=== PATIENT | male | born 1930 | race Caucasian/White ===

== ENCOUNTER 2016-06-13 17:44 | Inpatient (IN) ==
[2016-06-13] MEDS ORDERED: XYLOCAINE 2% JELLY UROJECT TOP ONE (18:32)
[2016-06-13] MEDS ORDERED: NS 1,000 ML IV ONE (18:32)
[2016-06-13] MEDS ORDERED: ZOFRAN IV ONE (18:33)
[2016-06-13 18:52] LABS: MANUAL DIFF NEEDED? NO
[2016-06-13 18:57] LABS: BASO% 0.1 % (0.0-0.8); HEMATOCRIT 38.5 % (42.0-52.0); HEMOGLOBIN 13.7 g/dL (14.0-18.0); IMM GRAN# 0.04 X1000 (0.0-0.04); IMM GRAN% 0.3 % (0.0-0.5); LYMPH# 1.49 X1000 (1.2-3.4); MCH 29.8 PG (27-31); MCHC 35.6 g/dL (33-37); MCV 83.7 FL (81-99); MONO# 1.54 X1000 (0.11-0.59); MONO% 10.4 % (1.7-9.3); NEUT% 79.2 % (42.2-75.2); PLT 235 X1000 (130-400)
[2016-06-13 19:25] LABS: CALCIUM 9.6 mg/dL (8.8-10.2); POTASSIUM 4.1 mmol/L (3.5-5.1); TOTAL BILIRUBIN 0.53 mg/dL (0.20-1.00)
[2016-06-13] MEDS ORDERED: HUMULIN R IV ONE (19:35)
[2016-06-13 20:00] LABS: ALLEN TEST YES; BE -0.1 mmoll (-3.0-3.0); BLOOD TYPE ARTERIAL; DRAW SITE R BRACHIAL; O2(CT) 17.7 mL/dL (15.0-23.0); PCO2(98.6) 36 mmHg (35-45); PO2(98.6) 63 mmHg (60-100); SAMPLE BLOOD; SAO2 96.3 % (95.0-100.0); THB 13.7 g/dL (11.5-17.4); pH(98.6) 7.43 (7.35-7.45)
[2016-06-13 20:01] LABS: MODALITY ROOM AIR
[2016-06-13 20:26] LABS: URINE CULTURE NEEDED? NO; URINE MICRO REVIEW NEEDED? NO; URINE SOURCE CATH
[2016-06-13 20:32] LABS: BILIRUBIN URINE NEGATIVE (NEGATIVE); BLOOD URINE MODERATE (NEGATIVE); COLOR YELLOW; GLUCOSE URINE >1000 mg/dL (NEGATIVE); LEUKOCYTES URINE NEGATIVE (NEGATIVE); NITRITE URINE NEGATIVE (NEGATIVE); PROTEIN URINE 50 mg/dL (NEGATIVE); TURBIDITY URINE CLEAR (CLEAR); UROBILINOGEN URINE NORMAL (NORMAL)
[2016-06-13 20:34] LABS: UR EPITHELIAL CELLS <10 /HPF (<10); URINE BACTERIA NEGATIVE /HPF; URINE RBC 20-40 /HPF (<10); URINE WBC <10 /HPF (<10)
[2016-06-13] MEDS ORDERED: LEVAQUIN 500 MG/D5W 500 MG/100 ML IVPB IV SCH (21:45)
--- NOTE | 2016-06-13 21:56 | HISTORY AND PHYSICAL ---
PRIMARY CARE PHYSICIAN: Dr. Eduardo Ag. CHIEF COMPLAINT: Nausea, vomiting. HISTORY OF PRESENTING ILLNESS: 86-year-old male with a history of diabetes mellitus 2, hypertension and hypothyroidism had presented to emergency department with complaint of nausea, vomiting that has been ongoing for the past 3 days. The patient was apparently getting weak and was also having trouble urinating. Patient recently underwent surgery for bladder tumor about 3 days ago and subsequently symptoms had started after that. He was seen in the ER and he was given some antiemetics and he was somewhat drowsy. Most of the history was obtained from family members. However the patient's family had denied patient having any fevers, chills, chest pain, shortness of breath or any recent weight changes. PAST MEDICAL HISTORY: Includes diabetes mellitus type 2, hypertension, hypothyroidism, hyperlipidemia. PAST SURGICAL HISTORY: Back surgery, appendectomy. ALLERGIES: Penicillin, iodine, sulfa. CURRENT MEDICATIONS: List in the MAR. SOCIAL HISTORY: He chews tobacco. No history of alcohol or illicit drug use. FAMILY HISTORY: No history of coronary disease. REVIEW OF SYSTEMS: Twelve point review of systems elicited but is limited due to patient being lethargic. PHYSICAL EXAMINATION: GENERAL: Patient is resting comfortably. VITAL SIGNS: Pulse 116, respirations 20, blood pressure 158/86, saturating 97% . HEENT: Atraumatic, normocephalic. NECK: No masses. CHEST: Clear to auscultation. CARDIOVASCULAR: Regular rate and rhythm. ABDOMEN: Soft. Positive bowel sounds. EXTREMITIES: No edema. NEURO: Alert and arousable. : No bladder distention. SKIN: Warm. LABORATORIES AND STUDIES: WBC 14.87 hemoglobin 13.7, hematocrit 38.5, platelets 235,000. Sodium 132, potassium 4.1, chloride 93, CO2 is 19, BUN is 44, creatinine is 2.2 , glucose is 495. UA is negative for bacteria, negative for leukocytes. ASSESSMENT: 86-year-old male with a history of diabetes mellitus type 2, hypertension, hypothyroidism, recently underwent bladder tumor removal and subsequently went home and developed nausea, vomiting that has been going on for the past 3 days. He also developed urinary retention. He was evaluated in the ER, Summers was placed. He was given antiemetic. He seemed to have some mild improvement. However due to his presenting symptoms he will need hospitalization for further management. Assessment 1. Postoperative nausea, vomiting. 2. Urinary retention. 3. Acute on chronic kidney disease stage 3. 4. Diabetes mellitus type 2 with hyperglycemia. 5Leukocytosis PLAN: 1. Will admit patient to medical floor with telemetry. 2. We will continue patient with antiemetics, IV fluids. 3. We will leave Summers in place. 4. We will consult urologist. 5. Monitor renal function. 6. We will put patient on insulin scale regimen and monitor blood glucose closely. 7.Will start empiric antibiotic 8. We will put patient on DVT prophylaxis with SCDs. 9. We will continue to follow and reassess. cc: Ever Doyle MD MTDD
[2016-06-13] MEDS ORDERED: ZOFRAN IV PRN (22:29)
[2016-06-13] MEDS ORDERED: NS 1,000 ML IV SCH (22:29)
[2016-06-14 05:35] LABS: MANUAL DIFF NEEDED? NO
[2016-06-14 05:48] LABS: BASO% 0.1 % (0.0-0.8); HEMOGLOBIN 13.1 g/dL (14.0-18.0); IMM GRAN# 0.02 X1000 (0.0-0.04); IMM GRAN% 0.2 % (0.0-0.5); LYMPH# 1.77 X1000 (1.2-3.4); LYMPH% 14.9 % (20.5-51.1); MCH 29.4 PG (27-31); MCHC 34.5 g/dL (33-37); MCV 85.4 FL (81-99); MONO# 1.58 X1000 (0.11-0.59); MONO% 13.3 % (1.7-9.3); MPV 11.3 FL (7.4-10.4); NEUT% 71.5 % (42.2-75.2); PLT 218 X1000 (130-400); RBC 4.45 XMIL (4.7-6.1)
[2016-06-14 05:59] LABS: CALCIUM 9.1 mg/dL (8.8-10.2); POTASSIUM 4.2 mmol/L (3.5-5.1)
[2016-06-14] MEDS: SYNTHROID PO SCH (06:05)
[2016-06-14] MEDS: HUMULIN R SUBQ SCH ×4 (06:58→21:18)
[2016-06-14] MEDS: COREG PO SCH ×2 (10:54→21:37)
[2016-06-14] MEDS: NS 1,000 ML IV SCH (11:02)
[2016-06-14] MEDS ORDERED: ZOCOR PO SCH (21:00)
[2016-06-14] MEDS ORDERED: DULCOLAX PR SCH (21:00)
--- NOTE | 2016-06-14 21:13 | PROGRESS NOTE ---
DATE: 06/14/2016 SUBJECTIVE: The patient states that he feels weak. He denies any nausea at this time. He has not had any episodes of vomiting. OBJECTIVE: Vital Signs: Temperature 98.2 degrees, blood pressure 177/82, heart rate 78, respirations 18, O2 saturations 95% on room air. General: This is a chronically ill-appearing, elderly male, lying in bed, in no acute distress. Head: Normocephalic, atraumatic. Heart: S1, S2 normal. Regular rate and rhythm. Lungs: Clear to auscultation bilaterally. Abdomen: Positive bowel sounds. Soft, nontender, nondistended. Extremities: No edema. No cyanosis. No calf tenderness. Neurologic: The patient is awake and alert. LABS: White blood cell count 11, hemoglobin 13, hematocrit 38, platelets 218, 000. Sodium 140, potassium 4.2, chloride 101, CO2 22, BUN 36, creatinine 1.8, glucose 304. ASSESSMENT AND PLAN: 1. Nausea with vomiting. We will order an abdominal x-ray to be sure that the patient is not constipated. We will continue on antiemetics for now. If the patient is constipated we will go ahead and scheduled laxatives. 2. Acute kidney injury on chronic kidney disease. The patient's baseline creatinine is unknown, however, improving with IV fluid hydration. We will continue on IV fluids. 3. Status post transurethral resection with a large bladder tumor with instillation of mitomycin C. Management as per the urologist. 4. Hypertension. We will start the patient on Coreg. 5. Uncontrolled diabetes mellitus type 2. The patient is on metformin and Adderall as outpatient. We will hold these medications due to the patient's renal dysfunction and start the patient on Levemir plus sliding scale insulin coverage. 6. Hypothyroidism. Continue on Synthroid. 7. The plan of care was discussed with the patient and his family at the bedside. cc: Lien Colbert MD MTDOsmel
[2016-06-14] MEDS: FLOMAX PO SCH (21:37)
[2016-06-14] MEDS: COLACE PO SCH (21:37)
[2016-06-14] MEDS: MIRALAX PO SCH (21:37)
[2016-06-14] MEDS: LEVEMIR SUBQ SCH (21:38)
--- NOTE | 2016-06-14 23:55 | CONSULTATION ---
DATE OF CONSULTATION: 06/14/2016 CONSULTING PHYSICIAN: Dr. Colbert. REASON FOR CONSULTATION: Urinary retention, recent urologic surgery. HISTORY OF PRESENT ILLNESS: This 86-year-old male, who was seen by me in clinic secondary microscopic hematuria. He was found to have a large bladder tumor, and underwent transurethral resection of that tumor with bilateral retrograde pyelograms and postoperative installation of mitomycin-C, on 06/10/2016. He was discharged home without the catheter. The family reports that since discharge he started having progressive difficulties with urinating, voiding in small amounts, as well as, developing nausea. He has contacted the urologist information security systems instructor over the weekend, and was given prescription for Phenergan, but could not hold it down, which prompted the ER trip. His nausea and vomiting were intractable, and his family also complained about patient getting weaker. Hence, he was admitted to the hospital. He is currently resting with Summers catheter in draining clear urine. Per family his nausea has now resolved. He denied significant gross hematuria or dysuria at home. There was no report of fevers or chills. PAST MEDICAL HISTORY: 1. Hyperlipidemia. 2. Hypothyroidism. 3. Diabetes mellitus. 4. Allergic rhinitis. 5. BPH. PAST SURGICAL HISTORY: Back surgery, appendectomy, transurethral resection of the bladder tumor. ALLERGIES: Penicillin, iodine, sulfa. HOME MEDICATIONS: Glimepiride, levothyroxine, metformin, simvastatin. SOCIAL HISTORY: He denies tobacco or alcohol or drug use. FAMILY HISTORY: Negative for malignancies. REVIEW OF SYSTEMS: Reviewed 12 systems with the patient and family, and negative with exception to the HPI. PHYSICAL EXAMINATION: T 99.1, P 82, BP 175/86.General: No acute distress. HEENT: Normocephalic, atraumatic. Cardiovascular: Regular rhythm. Pulmonary: Bilateral breath sounds. Abdomen: Nontender, nondistended. : Normal phallus. Normal meatus. Testes descended bilaterally. Summers catheter in place draining clear urine. Rectal: Deferred at this point. Dermatologic: No obvious skin rashes. Lymphatic: No groin lymphadenopathy. Neurologic: Alert and oriented x3. Psychiatric: Appropriate mood and affect. PERTINENT LABORATORY DATA: His white cell count is 12,000, hematocrit is 38, creatinine is 1.8. It was 2.2 upon presentation yesterday. Urinalysis was positive for blood, but negative for bacteria, leukocytes or nitrite. PERTINENT IMAGES: None. ASSESSMENT/PLAN: This is an 86-year-old male with recent diagnosis of bladder cancer, who underwent transurethral resection. He was readmitted with nausea, vomiting and weakness with likely resultant abnormalities in his electrolytes, as well as, elevated creatinine. His nausea has now resolved. Per his family, he is feeling better. We discussed that he likely went into retention, secondary to the underlying BPH, and the stress of surgery and the procedure. I am puzzled with why he developed such nausea, as his surgery was transurethral, and we typically do not affect GI system. We have discussed having the patient on Flomax, and wearing catheter for couple more days with subsequent voiding trial. PLAN: 1. Flomax 0.4 mg b.i.d. 2. Keep Summers catheter at gravity drainage. 3. I will follow, but no further urologic care is needed at this point. Thank you for consultation. cc: Bryon Nye MD
[2016-06-15] MEDS: NS 1,000 ML IV SCH ×2 (02:54→03:01)
[2016-06-15 03:40] VITALS: BP 170/71
[2016-06-15 05:45] LABS: HEMATOCRIT 35.3 % (42.0-52.0); HEMOGLOBIN 11.7 g/dL (14.0-18.0); MCH 28.9 PG (27-31); MCHC 33.1 g/dL (33-37); MCV 87.2 FL (81-99); MPV 11.1 FL (7.4-10.4); RBC 4.05 XMIL (4.7-6.1)
[2016-06-15] MEDS: SYNTHROID PO SCH (06:23)
[2016-06-15] MEDS: HUMULIN R SUBQ SCH ×2 (06:23→11:14)
[2016-06-15] MEDS: COREG PO SCH ×2 (08:05→11:14)
[2016-06-15] MEDS: MIRALAX PO SCH (08:05)
[2016-06-15] MEDS: LEVEMIR SUBQ SCH (08:05)
[2016-06-15] MEDS: FLOMAX PO SCH (08:05)
[2016-06-15] MEDS: COLACE PO SCH (08:05)
--- NOTE | 2016-06-15 10:00 | Diag Imaging Result Document ---
PROCEDURE NAME: CHEST-PORTABLE - 06/14/2016 PORTABLE CHEST X-RAY, 06/14/2016: COMPARISON: None. FINDINGS: The lungs are normally expanded and clear. Heart size and mediastinal contours are normal. No pneumothorax or pleural effusion. IMPRESSION: Negative exam.
[2016-06-15] MEDS ORDERED: FLEET MINERAL OIL ENEMA PR ONE (10:06)
--- NOTE | 2016-06-15 10:13 | Diag Imaging Result Document ---
PROCEDURE NAME: ABDOMEN FLAT/UPRIGHT - 06/14/2016 ABDOMEN, 2 VIEWS: COMPARISON: None. FINDINGS: There is mild constipation particularly at the ascending and sigmoid colon. No evidence of bowel obstruction or free air. IMPRESSION: Constipation.
--- NOTE | 2016-06-15 10:54 | PROGRESS NOTE ---
DATE: 06/15/2016 SUBJECTIVE: Mr. Marin reports having a good night. He denies nausea, vomiting. He is currently eating eggs, which he is tolerating well. OBJECTIVE: Vital Signs: T 98.7 degrees, P 77, BP 170/71. : Urine output was recorded in the amount of 1800 mL. Summers catheter draining clear urine. General: No acute distress. Abdomen: Nontender, nondistended. PERTINENT LABORATORY DATA: White cell count of 8000, creatinine is down to 1.3. ASSESSMENT: An 86-year-old male, status post transurethral resection of bladder tumor last week. He was admitted with nausea, vomiting, hyponatremia, acute kidney injury and exacerbation of his diabetes. He appears to be doing well now. I have discussed with the patient and his family that it would be prudent for him to go home on Flomax 0.4 mg twice a day and Summers catheter and us perform voiding trial in 2 days in clinic. PLAN: 1. No further care needed at this point. 2. When he is clear for discharge by Dr. Colbert, he will go home with Summers catheter and Flomax 0.4 mg twice a day. 3. I will be happy to see him in clinic on 06/17/2016 for formal voiding trial. cc: Bryon Nye MD
[2016-06-15] MEDS ORDERED: AMARYL PO SCH (21:00)
--- NOTE | 2016-06-23 22:32 | PROVIDER DOCUMENTATION ---
This chart was entered by Spencer Jackson Scribe, acting as scribe for Dylan Suarez MD. HPI-Rash/Wound/ReCheck - General Chief Complaint: Post Op Complaint Stated Complaint: VOMITING,WEAK,NOT EATING VERY WELL Time Seen by Provider: 06/13/16 18:23 Source: patient, family Allergies/Adverse Reactions: Allergies Allergy/AdvReac Type Severity Reaction Status Date / Time iodine Allergy Unknown Verified 06/13/16 18:07 Penicillins Allergy Unknown Verified 06/13/16 18:07 Home Medications: Home Medication List Medication Instructions Recorded Confirmed Last Taken Type Glimepiride 2 mg PO BID 06/08/16 06/13/16 06/09/16 19:00 History Levothyroxine [Synthroid] 112 microgm PO DAILY 06/08/16 06/13/16 06/09/16 08:00 History Metformin HCl 1,000 mg PO BID 06/08/16 06/13/16 06/09/16 08:00 History SIMVAstatin [Zocor] 40 mg PO QHS 06/08/16 06/13/16 06/09/16 19:00 History Carvedilol [Coreg] 3.125 mg PO Q12H #60 tablet 06/15/16 Unknown Rx Docusate Sodium [Colace] 100 mg PO BID #60 capsule 06/15/16 Unknown Rx Polyethylene Glycol 3350 [Miralax] 17 gm PO BID #1 powder, packet 06/15/16 Unknown Rx Tamsulosin [Flomax] 0.4 mg PO BID #60 capsule 06/15/16 Unknown Rx - History of Present Illness-Dermatology Nature of Presenting Problem: Pt is a 86 yom who presents to ER with CC of urinary retention/dribbling since night. Pt had a tumor removed from his bladder on and reports that since then, he has been unable to empty his bladder fully and has also started vomiting. Family reports that pt was given rx for zofran but got no relief, so pt was given suppositories for his vomiting which helped. Family also reports that pt has had increased weakness. Location: reports: other (superpubic) Quality: reports: other (full) Severity: reports: moderate Onset/Duration: reports: 4 days ago Timing: reports: still present Context/Associated Symptoms: reports: other (dribbling/urinary retention). denies: insect bite/sting, tick bite, spider bite, unknown bite/sting, abscess, laceration, abrasion, bruising/hematoma, incised wound, stab wound, burn, blisters, change in skin texture, edema, fever, flushing, headache, hives, jaundice, lesion, malaise, nasal congestion, numbness, pallor, paresthesia, petechiae, rash, sore throat, swelling/mass/lumps, tingling, tender area Similar Symptoms Previously?: Yes Recently seen or treated by another doctor?: Yes (Blader tumor removed on ) Review of Systems - Adult - REVIEW OF SYSTEMS - ADULT Constitutional: reports: fatique. denies: chills, fever, night sweats, weight gain, weight loss Eyes: reports: no symptoms reported Ears, Nose, Mouth & Throat: reports: no symptoms reported Cardiovascular: reports: no symptoms reported Respiratory: reports: no symptoms reported Gastrointestinal: reports: vomiting. denies: abdominal pain, hematemesis, constipation, diarrhea, difficulty swallowing, frequent heartburn, nausea, poor appetite, rectal bleeding Genitourinary: reports: hematuria, urinary retention, other (dribbling). denies : dysuria, discharge, frequency, flank pain, frequent UTI's, hesitency, incontinence, urgency Musculoskeletal: reports: no symptoms reported Integumentary: reports: no symptoms reported Neurological: reports: no symptoms reported Psychiatric: reports: no symptoms reported Endocrine: reports: no symptoms reported Hematologic/Lymphatic: reports: no symptoms reported Allergic/Immunologic: reports: no symptoms reported All Other Systems: Reviewed and Negative Past History - Adult - PAST MEDICAL HISTORY-ADULT Review of Records: reports: Nursing Assessment Review, Medications Reviewed - IMMUNIZATION STATUS Childhood Immunizations: See Nurse Assessment Flu Vaccine: See Nurse Assessment Physical Exam-General - PHYSICAL EXAM-ADULT Initial Vital Signs Reviewed: Yes - CONSTITUTIONAL General Appearance: appears well, alert, mild distress, anxious. negative: no apparent distress - RESPIRATORY Respiratory: chest non-tender, lungs clear, normal breath sounds, no pleuratic chest pain, no respiratory distress, no accessory muscle use. negative: respiratory distress, decreased breath sounds, accessory muscle use, wheezing - CARDIOVASCULAR Cardiovascular: normal peripheral pulses, regular rate, rhythm. negative: bradycardia, tachycardia, irregularly irregular - GASTROINTESTINAL (ABDOMEN) Abdominal Exam: normal bowel sounds, soft, no organomegaly, no pulsatile mass, distended (superpubic distention), tenderness (bilateral lower quadrant/ superpubic). negative: non tender - MUSCULOSKELETAL Back Exam: normal inspection, no CVA tenderness, no vertebral tenderness. negative: CVA tenderness Extremity: normal range of motion, non-tender, normal gait, normal inspection, no pedal edema, no calf tenderness, normal capillary refill. negative: deformity, erythema, inflammation, swelling, tenderness - SKIN Integumentary: normal color, normal turgor, warm/dry. negative: abrasion(s), diaphoresis, ecchymosis, erythema, laceration(s), swelling, tenderness, warm - NEUROLOGIC Neurologic: computational biologist II-XII nml as tested, grossly normal, no motor/sensory deficits . negative: facial droop, focal weakness, motor weakness, sensory deficit - PSYCHIATRIC Psych/Mental Status: normal mood/affect, normal thought content, normal thought process, oriented x 3 Progress - PLAN OF CARE/RESULTS Progress/Plan/Lab Results: Orders Category Date Time Status Admit - [facility] - [facility] Routine AdmDCTranf 06/13/16 22:29 Ordered Activity - Up with Assistance ORDERED Care 06/13/16 22:29 Active Apply Mechanical Device [QM] ORDERED Care 06/13/16 22:29 Active FSBS/Accucheck Result AC + HS Care 06/13/16 22:29 Active Summers Cath Insertion ORDERED Care 06/13/16 18:32 Completed Intake and Output-Strict ORDERED Care 06/13/16 22:29 Active Nursing- MD Consult Request ROUTINE Care 06/13/16 22:29 Completed Vital Signs Order Q 8-HR ASSESS Care 06/13/16 22:29 Active Physician/Provider Consults Routine Cons 06/13/16 22:29 Ordered Clear Liquid Diet Diet 06/13/16 21:43 Completed ABG [RESP] Routine Lab 06/13/16 19:50 Completed BASIC METABOLIC PANEL [CHEM] Routine Lab 06/14/16 04:51 Completed CBC WITH DIFF [HEME] Routine Lab 06/14/16 04:51 Completed CBC WITH ELECTRONIC DIFF [HEME] Stat Lab 06/13/16 18:41 Completed CMP [COMPREHENSIVE METABOLIC PANEL] [CHEM] Stat Lab 06/13/16 18:41 Completed TSH Routine Lab 06/14/16 04:51 Completed UA Reflex [URINALYSIS W/POSS RFLX CULT-1] [URINALYSIS] Lab 06/13/16 20:10 Completed Stat 0.9% Sodium Chloride Inj [Ns] 1,000 ml Med 06/13/16 22:29 Discontinued IV 80 mls/hr 0.9% Sodium Chloride Inj [Ns] 1,000 ml Med 06/13/16 18:32 Discontinued IV 999 mls/hr Insulin Human Regular [Humulin R] Med 06/13/16 19:35 Discontinued 5 unit IV NOW ONE Insulin Human Regular [Humulin R] Med 06/14/16 07:00 Discontinued See Protocol SUBQ 0700,1100,1600,2100 Levofloxacin 500 mg/D5w [Levaquin 500 mg/D5w] Med 06/13/16 21:45 Discontinued 500 mg in 100 ml IV Q24H Levothyroxine [Synthroid] Med 06/14/16 07:00 Discontinued 112 microgm PO DAILY@0700 Lidocaine 2% Jelly Appl [Xylocaine 2% Jelly Uroject] Med 06/13/16 18:32 Discontinued 1 ml TOP NOW ONE Ondansetron [Zofran] Med 06/13/16 18:33 Discontinued 4 mg IV NOW ONE Ondansetron [Zofran] Med 06/13/16 22:29 Discontinued 4 mg IV Q4H PRN PRN SIMVAstatin [Zocor] Med 06/14/16 21:00 Discontinued 40 mg PO QHS Telemetry [OM.EQ] Routine Oth 06/13/16 22:29 Active Transfer/Admit Order [TRANSFER] Routine Transfer 06/13/16 21:42 Completed Result Diagrams: 06/15/16 05:06 06/15/16 05:06 - REASSESSMENT Reassessment #1 Time Reassessed: 19:40 Status: other (Discussed results of pt's labs and POC for ABG and admittance. Pt and family verbally acknowledge and agree.) - CONSULTS/PCP/HOSPITALIST Notification #1 *Consult/PCP/Hospitalist*: Dr. Doyle (Hospitalist) Time Discussed: 20:58 Consult Disposition: Admit Departure - Departure Time of Disposition Decision: 20:54 DIAGNOSIS: Acute kidney injury, Urinary retention Disposition: ADMITTED INPATIENT 09 Certified Medical Emergency: Emergent Condition: Stable - Critical Care Note This patient required my direct personal management.: No This chart was documented by the indicated scribe, (Spencer Jackson, Artem) and accurately reflects the services I performed and decisions made by me, Dylan Cano MD, as attested by the provider's signature.
--- NOTE | 2016-06-26 18:27 | DISCHARGE SUMMARY ---
ADMISSION DATE: 06/13/2016 DISCHARGE DATE: 06/15/2016 FINAL DISCHARGE DIAGNOSES: 1. Nausea with vomiting. 2. Constipation. 3. Acute kidney injury on chronic kidney disease. 4. Status post TURP with a large bladder tumor with instillation of mitomycin C. 5. Hypertension. 6. Uncontrolled diabetes mellitus type 2. 7. Hypothyroidism. CONSULTATIONS REQUESTED DURING THIS HOSPITAL STAY: Urology consultation with Dr. Nye. HOSPITAL COURSE: Mr. Marin is an 86-year-old male with a history of recent TURP and bladder tumor resection who presented to the ER with nausea and vomiting. An abdominal x-ray was done which revealed constipation and it was thought that this was what was contributing to the patient's inability to keep food or liquids down. The patient was started on laxatives and IV fluids which resulted in improvement in the patient's abdominal pain and he was finally able to eat without any difficulty. He was noted to be in acute renal failure on admission, with a creatinine of 2.2 and a BUN of 44. With the initiation of IV fluids the patient's BUN and creatinine improved to 30 and 1.3 respectively. The patient was seen by Dr. Nye during the hospital stay, and it was recommended that the patient go home with a Summers catheter and continue on Flomax 0.4 mg oral twice a day. The patient was ultimately cleared for discharge home on 06/15/2016. DISCHARGE MEDICATIONS: 1. Coreg 3.125 mg p.o. every 12 hours. 2. Colace 100 mg p.o. twice a day. 3. MiraLAX 17 g p.o. twice a day. 4. Flomax 0.4 mg p.o. twice a day. 5. Synthroid 112 mcg oral daily. 6. Zocor 40 mg p.o. at bedtime. 7. Metformin 1000 mg p.o. twice a day. 8. Amaryl 2 mg p.o. twice a day. DISCHARGE DIET: 1800 ADA diet. ACTIVITY: As tolerated. FOLLOWUP INSTRUCTIONS: The patient will need to follow up with Dr. Nye as scheduled by the clinic. cc: Lien Colbert MD
== END 2016-06-15 13:28 | disposition home or self-care (01) ==
LOC: ED 17:44 → SUATTDRO 22:19 → 4N 22:19
PROVIDERS: ATTEND Internal Medicine